=== PATIENT | male | born 1985 | race Caucasian/White ===

== ENCOUNTER 2017-04-19 16:33 | Emergency (ER) | payer BC ==
[2017-04-19] MEDS ORDERED: Ketorolac 30 MG/ML SDV IVPUSH ONE (16:50)
[2017-04-19] MEDS ORDERED: Sodium Chloride 0.9% 1,000 ML IV ONE (16:50)
[2017-04-19] MEDS ORDERED: Ondansetron 4 MG/2 ML SDV IVPUSH ONE (16:50)
--- NOTE | 2017-04-19 16:52 | EDM.PDOC ---
<Jared Marie - Last Filed: 04/19/17 18:41> ED HPI GENERAL MEDICAL PROBLEM - General Chief Complaint: Headache Stated Complaint: PT HAS FEVER AND MIGRAINE Time Seen by Provider: 04/19/17 16:52 Source of Information: Reports: Patient - History of Present Illness INITIAL COMMENTS - FREE TEXT/NARRATIVE: HISTORY AND PHYSICAL: History of present illness: []Patient presents with 2 days of headache, he also reports fever up to 102, he was originally seen yesterday through the [facility] ER with apparently extensive workup within the facilities capability from lab standpoint. Today they sent patient over for a CT which was read as negative, he then either decided to be seen to the emergency room were they recommended possible lumbar puncture and evaluation Patient is taking Tylenol within the last 3 hours At current is afebrile no fever nausea vomiting diarrhea constipation chest pain shortness breath\ dizziness palpitation no bowel or urine symptoms Symptomatically headache originally 7 out of 10 diffuse headache, improved to 2- 3 out of 10 with lumbar puncture, pressure reported via anesthesia 24, see anesthesia note for details Review of systems: As per history of present illness and below otherwise all systems reviewed and negative. Past medical history: As per history of present illness and as reviewed below otherwise noncontributory. Surgical history: As per history of present illness and as reviewed below otherwise noncontributory. Social history: No reported history of drug or alcohol abuse. Family history: As per history of present illness and as reviewed below otherwise noncontributory. Physical exam: HEENT: Atraumatic, normocephalic, pupils reactive, negative for conjunctival pallor or scleral icterus, mucous membranes moist, throat clear, neck supple, nontender, trachea midline. No nuchal rigidity Lungs: Clear to auscultation, breath sounds equal bilaterally, chest nontender. Heart: S1S2, regular, negative for clicks, rubs, or JVD. Abdomen: Soft, nondistended, nontender. Negative for masses or hepatosplenomegaly. Negative for costovertebral tenderness. Pelvis: Stable nontender. Genitourinary: Deferred. Rectal: Deferred. Extremities: Atraumatic, negative for cords or calf pain. Neurovascular unremarkable. Neuro: Awake, alert, oriented. Cranial nerves II through XII unremarkable. Cerebellum unremarkable. Motor and sensory unremarkable throughout. Exam nonfocal. Diagnostics: []CBC, CMP Records were requested from [facility] do not have those results Head CT without contrast on file Lumbar puncture was standard labs Therapeutics: []1 L normal saline bolus Zofran 8 mg IV Toradol 30 mg IV Fioricet 2 tabs by mouth Impression: []Headache Fever reported Patient signed out to Dr. Escobar will follow laboratory direct Definitive disposition and diagnosis as appropriate pending reevaluation and review of above. headache Pain Score (Numeric/FACES): 10 - Related Data Allergies Allergy/AdvReac Type Severity Reaction Status Date / Time cefaclor [From [facility]] Allergy Rash Verified 04/19/17 16:50 Home Meds: Home Meds . [No Known Home Meds] 04/19/17 [History] Course - Vital Signs Last Recorded V/S: Last Vital Signs Temp 37.1 C 04/19/17 16:50 Pulse 67 04/19/17 19:05 Resp 18 04/19/17 19:05 BP 116/71 04/19/17 19:05 Pulse Ox 96 04/19/17 19:05 - Orders/Labs/Meds Orders: Active Orders 24 hr Category Date Time Status CULTURE CSF + SMEAR [RM] Stat Lab 04/19/17 18:03 Results UA W/MICROSCOPIC [URIN] Stat Lab 04/19/17 16:52 Uncollected Labs: Laboratory Tests 04/19/17 04/19/17 04/19/17 Range/Units 17:05 17:05 18:03 WBC 7.18 (4.0-11.0) K/uL RBC 4.81 (4.50-5.90) M/uL Hgb 14.1 (13.0-17.0) g/dL Hct 42.5 (38.0-50.0) % MCV 88.4 (80.0-98.0) fL MCH 29.3 (27.0-32.0) pg MCHC 33.2 (31.0-37.0) g/dL RDW Std Deviation 42.8 (28.0-62.0) fl RDW Coeff of Rolando 13 (11.0-15.0) % Plt Count 212 (150-400) K/uL MPV 10.80 (7.40-12.00) fL Neut % (Auto) 51.4 (48.0-80.0) % Lymph % (Auto) 37.5 (16.0-40.0) % [place] % (Auto) 10.3 (0.0-15.0) % Eos % (Auto) 0.7 (0.0-7.0) % Baso % (Auto) 0.1 (0.0-1.5) % Neut # (Auto) 3.7 (1.4-5.7) K/uL Lymph # (Auto) 2.7 H (0.6-2.4) K/uL [place] # (Auto) 0.7 (0.0-0.8) K/uL Eos # (Auto) 0.1 (0.0-0.7) K/uL Baso # (Auto) 0.0 (0.0-0.1) K/uL Nucleated RBC % 0.0 /100WBC Nucleated RBCs # 0 K/uL Sodium 141 (136-146) mmol/L Potassium 3.9 (3.5-5.1) mmol/L Chloride 109 (98-110) mmol/L Carbon Dioxide 22 (21-31) mmol/L BUN 11 (6.0-23.0) mg/dL Creatinine 1.0 (0.6-1.5) mg/dL Est Cr Clr Drug Dosing 92.25 mL/min Estimated GFR (MDRD) > 60.0 ml/min Glucose 86 (60-110) mg/dL Calcium 9.0 (8.8-10.8) mg/dL Total Bilirubin 0.6 (0.1-1.5) mg/dL AST 16 (5-40) IU/L ALT 22 (8-54) IU/L Alkaline Phosphatase 63 (40-150) Total Protein 7.4 (6.0-8.0) g/dL Albumin 4.1 (3.5-5.0) g/dL Globulin 3.3 (2.0-3.5) g/dL Albumin/Globulin Ratio 1.2 L (1.3-2.8) CSF Appearance CLEAR CSF Color COLORLESS CSF WBC 0.119 H (0-0.005) K/uL CSF RBC 0.000 (0.0-0.0) M/uL CSF Mononuclear Cells 95.8 % CSF Polymorphonuclear 4.2 % CSF Glucose (50-80) mg/dL CSF Total Protein 04/19/17 04/19/17 Range/Units 18:03 18:03 WBC (4.0-11.0) K/uL RBC (4.50-5.90) M/uL Hgb (13.0-17.0) g/dL Hct (38.0-50.0) % MCV (80.0-98.0) fL MCH (27.0-32.0) pg MCHC (31.0-37.0) g/dL RDW Std Deviation (28.0-62.0) fl RDW Coeff of Rolando (11.0-15.0) % Plt Count (150-400) K/uL MPV (7.40-12.00) fL Neut % (Auto) (48.0-80.0) % Lymph % (Auto) (16.0-40.0) % [place] % (Auto) (0.0-15.0) % Eos % (Auto) (0.0-7.0) % Baso % (Auto) (0.0-1.5) % Neut # (Auto) (1.4-5.7) K/uL Lymph # (Auto) (0.6-2.4) K/uL [place] # (Auto) (0.0-0.8) K/uL Eos # (Auto) (0.0-0.7) K/uL Baso # (Auto) (0.0-0.1) K/uL Nucleated RBC % /100WBC Nucleated RBCs # K/uL Sodium (136-146) mmol/L Potassium (3.5-5.1) mmol/L Chloride (98-110) mmol/L Carbon Dioxide (21-31) mmol/L BUN (6.0-23.0) mg/dL Creatinine (0.6-1.5) mg/dL Est Cr Clr Drug Dosing mL/min Estimated GFR (MDRD) ml/min Glucose (60-110) mg/dL Calcium (8.8-10.8) mg/dL Total Bilirubin (0.1-1.5) mg/dL AST (5-40) IU/L ALT (8-54) IU/L Alkaline Phosphatase (40-150) Total Protein (6.0-8.0) g/dL Albumin (3.5-5.0) g/dL Globulin (2.0-3.5) g/dL Albumin/Globulin Ratio (1.3-2.8) CSF Appearance CSF Color CSF WBC (0-0.005) K/uL CSF RBC (0.0-0.0) M/uL CSF Mononuclear Cells % CSF Polymorphonuclear % CSF Glucose 48.0 L (50-80) mg/dL CSF Total Protein 74.7 Meds: Medications Discontinued Medications Generic Name Dose Route Start Last Admin Trade Name Abbey PRN Reason Stop Dose Admin Acetaminophen/Butalbital/Caffeine 2 tab 04/19/17 18:32 Fioricet 325-50-40 Mg PO 04/19/17 18:33 ONETIME ONE Sodium Chloride 1,000 mls @ 999 mls/hr 04/19/17 16:50 04/19/17 17:07 Normal Saline IV 04/19/17 17:50 999 mls/hr STAT ONE Administration Ketorolac Tromethamine 30 mg 04/19/17 16:50 04/19/17 17:07 Toradol IVPUSH 04/19/17 16:51 30 mg ONETIME ONE Administration Ondansetron HCl 8 mg 04/19/17 16:50 04/19/17 17:08 Zofran IVPUSH 04/19/17 16:51 8 mg ONETIME ONE Administration Departure - Departure Disposition: Home, Self-Care 01 Clinical Impression: Cephalgia - Discharge Information Forms: ED Department Discharge Additional Instructions: The following information is given to patients seen in the emergency department who are being discharged to home. This information is to outline your options for follow-up care. We provide all patients seen in our emergency department with a follow-up referral. The need for follow-up, as well as the timing and circumstances, are variable depending upon the specifics of your emergency department visit. If you don't have a primary care physician on staff, we will provide you with a referral. We always advise you to contact your personal physician following an emergency department visit to inform them of the circumstance of the visit and for follow-up with them and/or the need for any referrals to a consulting specialist. The emergency department will also refer you to a specialist when appropriate. This referral assures that you have the opportunity for followup care with a specialist. All of these measure are taken in an effort to provide you with optimal care, which includes your followup. Under all circumstances we always encourage you to contact your private physician who remains a resource for coordinating your care. When calling for followup care, please make the office aware that this follow-up is from your recent emergency room visit. If for any reason you are refused follow-up, please contact the [facility] emergency department at and asked to speak to the emergency department charge nurse. Ultram as prescribed follow-up primary medical doctor 1-2 days return as needed as discussed <Tru Joyce - Last Filed: 04/19/17 19:57> ED ROS GENERAL - Review of Systems Review Of Systems: ROS reveals no pertinent complaints other than HPI. ED EXAM, GENERAL - Physical Exam Exam: See Below (See dictation) Course - Vital Signs Text/Narrative:: Spinal tap results were reviewed they were unremarkable I discussed admission for observation versus discharge with patient and family request discharge only discharged on Ultram to be taken as prescribed following primary medical doctor within 2 days Motrin and/or Tylenol as directed and return as needed as discussed Departure - Departure Time of Disposition: 19:57 Condition: Good
[2017-04-19 17:39] LABS: CHLORIDE,CL 109 mmol/L (98-110); SODIUM,NA 141 mmol/L (136-146)
[2017-04-19] MEDS ORDERED: Acetaminophen/Butalbital/Caffeine 325-50-40 MG Tab PO ONE (18:32)
--- NOTE | 2017-04-19 18:36 | PCM.SN ---
- Free Text/Narrative Note: Called for emergency room consult for a diagnostic tap to rule out meningitis. Patient interviewed, consent for procedure done after detailed verbal description of risks, benefits, and procedure. Agreed. Tap done with patient in the left lateral decubitus position. lumbar prepared with betadine sticks, a sterile drape applied, local - 5ml lidocaine from the spinal kit infiltrated shallow and deep to L45 interspace midline. 24 g Sprotte needle passed in one move via introducer needle to CSF return; initial ml tinged with pink but did not continue with the collection, hence I regarded this as evidence of membrane trauma with the pass of the needle; collection of CSF done in 4 sequential tubes with 1 ml in each per lab directions (orders for tests done by Dr. Velazquez); final step was to measure the CSF pressure which measured 24 cm. The completion was discussed with the EMD and the patient was returned to the supine position without any new complaint and his family returned to his bedside. the procedure was attended by the [facility] and Alban Proctor CRNA.
[2017-04-20 03:06] VITALS: BP 127/72
== END 2017-04-19 20:16 | disposition home or self-care (01) ==
LOC: MW.ED 16:33
DX: R51 Headache (principal); R50.9 Fever, unspecified; Z88.1 Allergy status to other antibiotic agents
CPT/HCPCS: 62270; 80053; 82945; 84157; 85025; 87070; 87205; 89050; 96361; 96374; 96375; 99284; A9270; J1885; J2405; J7040; 00635; 70450; 70450-26